=== PATIENT | female | born 1990 | race Two or more races ===

== ENCOUNTER 2016-12-20 12:35 | Emergency (ER) | payer MEDICAID ==
[2016-12-20 13:33] LABS: APPEARANCE CLEAR (CLEAR); BILIRUBIN NEGATIVE (NEGATIVE); COLOR YELLOW (YELLOW); GLUCOSE NEGATIVE (NEGATIVE); HCG URINE NEGATIVE (NEGATIVE); KETONE NEGATIVE (NEGATIVE); LEUKOCYTE ESTERASE NEGATIVE (NEGATIVE); NITRITE NEGATIVE (NEGATIVE); PROTEIN NEGATIVE (NEGATIVE); UROBILINOGEN NORMAL (NORMAL)
[2016-12-20 13:53] LABS: UDS - AMPHET POSITIVE QUAL (NEGATIVE); UDS - BARB NEGATIVE QUAL (NEGATIVE); UDS - BENZO NEGATIVE QUAL (NEGATIVE); UDS - COCAINE NEGATIVE QUAL (NEGATIVE); UDS - METH NEGATIVE QUAL (NEGATIVE); UDS - OPIATE NEGATIVE QUAL (NEGATIVE); UDS - PCP NEGATIVE QUAL (NEGATIVE); UDS - THC NEGATIVE QUAL (NEGATIVE)
[2016-12-20 13:58] LABS: BASOPHILS 0.3 % (0-2); EOSINOPHILS 1.1 % (0-7); HEMOGLOBIN 13.3 g/dL (12-16); IMMATURE GRANULOCYTES 0.3 % (0-5); LYMPHOCYTES 29.4 % (15-50); MCH 30.3 pg (26.0-34.0); MCV 86.6 fL (80.0-100.0); MONOCYTES 7.1 % (2-11); NEUTROPHILS 61.8 % (40-80); PLATELET COUNT 298 10x3/uL (130-400); RBC 4.39 10x6/uL (4.00-5.40); RDW 12.4 % (11.5-14.5); WBC 6.6 10x3/uL (4.8-10.8)
== END 2016-12-20 14:30 | disposition home or self-care (01) ==
LOC: D.ER 12:35
PROVIDERS: Emergency Medicine; Nurse Practitioner Acute Care
DX: Z03.89 Encounter for observation for other suspected diseases and conditions ruled out (principal)

== ENCOUNTER 2017-04-07 22:46 | Emergency (ER) | payer MEDICAID | END 2017-04-08 00:39 | disposition home or self-care (01) | LOC: D.ER 22:46 | DX: F32.9 Major depressive disorder, single episode, unspecified (principal); F17.200 Nicotine dependence, unspecified, uncomplicated ==

== ENCOUNTER 2017-12-22 04:16 | Emergency (ER) | payer MEDICAID | END 2017-12-22 05:15 | disposition home or self-care (01) | LOC: D.ER 04:16 | DX: S50.12XA Contusion of left forearm, initial encounter (principal); W19.XXXA Unspecified fall, initial encounter; Y93.89 Activity, other specified; Y92.019 Unspecified place in single-family (private) house as the place of occurrence of the external cause ==

== ENCOUNTER 2018-03-04 11:55 | Emergency (ER) | payer MEDICAID ==
[~2018-03-04] VITALS: Ht 162.6 cm; Wt 54.1 kg
[2018-03-04 12:10] VITALS: Ht 162.6 cm; Wt 54.1 kg
[2018-03-04 13:18] VITALS: BP 122/75
== END 2018-03-04 13:18 | disposition home or self-care (01) ==
LOC: D.ER 11:55
DX: L02.01 Cutaneous abscess of face (principal); R21 Rash and other nonspecific skin eruption

== ENCOUNTER 2018-03-05 08:32 | Emergency (ER) | payer MEDICAID ==
[~2018-03-05] VITALS: Ht 162.6 cm; Wt 52.2 kg
[2018-03-05 08:50] VITALS: Ht 162.6 cm; Wt 52.2 kg
[2018-03-05 10:57] VITALS: BP 104/65
== END 2018-03-05 11:10 | disposition home or self-care (01) ==
LOC: D.ER 08:32
DX: L73.9 Follicular disorder, unspecified (principal); A49.01 Methicillin susceptible Staphylococcus aureus infection, unspecified site; T14.8XXA Other injury of unspecified body region, initial encounter; W57.XXXA Bitten or stung by nonvenomous insect and other nonvenomous arthropods, initial encounter; Y93.89 Activity, other specified; Y92.019 Unspecified place in single-family (private) house as the place of occurrence of the external cause